=== PATIENT | female | born 1945 | race Caucasian/White ===

== ENCOUNTER 2018-01-03 00:11 | Observation (INO) | payer MEDICARE, BC ==
[2018-01-03] MEDS ORDERED: Sodium Chloride 0.9% 10 ML Syringe FLUSH PRN (00:35)
[2018-01-03] MEDS ORDERED: Iopamidol 612 MG/ML 100 ML Bottle IVPUSH ONE (00:48)
[2018-01-03 01:29] LABS: CHLORIDE,CL 108 mmol/L (98-107); SODIUM,NA 140 mmol/L (136-145)
[2018-01-03 01:30] LABS: ANION GAP 9.5 mmol/L (10-20)
--- NOTE | 2018-01-03 02:17 | EDM.PDOC ---
ED HPI GENERAL MEDICAL PROBLEM - General Chief Complaint: General Stated Complaint: arm tingling, hypertension Time Seen by Provider: 01/03/18 00:20 Source of Information: Reports: Patient History Limitations: Reports: No Limitations - History of Present Illness INITIAL COMMENTS - FREE TEXT/NARRATIVE: PtVida presents to ER with complaints of L arm paresthesia that developed at approx. 9:30 this evening. She denies any chest, back or neck discomfort. She was at rest during onset, the the discomfort has resolved since coming to the ER. She also reported complaints of parestheia to her foot, which was very short in duration and has completely resolved. She denies any shortness of breath. No weakness. No abdominal pain, nausea, vomiting, or palpitations. Onset: Today Onset Date: 01/02/18 Onset Time: 21:30 Location: Reports: Upper Extremity, Left, Lower Extremity, Left Quality: Reports: Other (numbness) Improves with: Reports: None Worsens with: Reports: None Associated Symptoms: Denies: Diaphoresis, Nausea/Vomiting, Shortness of Breath - Related Data Allergies Allergy/AdvReac Type Severity Reaction Status Date / Time No Known Allergies Allergy Verified 01/03/18 00:19 Home Meds: Home Meds Aspirin 325 mg PO DAILY 01/27/14 [History] atorvaSTATin [Lipitor] 20 mg PO BEDTIME 01/27/14 [History] hydroCHLOROthiazide [Hydrochlorothiazide] 25 mg PO DAILY 01/03/18 [History] Past Medical History HEENT History: Reports: Cataract Cardiovascular History: Reports: High Cholesterol, Hypertension Neurological History: Reports: None - Past Surgical History HEENT Surgical History: Reports: Cataract Surgery GI Surgical History: Reports: Appendectomy, Colonoscopy Female Surgical History: Reports: Tubal Ligation Social & Family History - Tobacco Use Smoking Status *Q: Never Smoker - Recreational Drug Use Recreational Drug Use: No - Living Situation & Occupation Living situation: Reports: ED ROS GENERAL - Review of Systems Review Of Systems: See Below Constitutional: Reports: No Symptoms HEENT: Reports: No Symptoms Respiratory: Reports: No Symptoms Cardiovascular: Reports: Other (See HPI) Endocrine: Reports: No Symptoms GI/Abdominal: Reports: No Symptoms : Reports: No Symptoms Musculoskeletal: Reports: Other (See HPI) Neurological: Reports: Paresthesia (L upper and lower extremity) Psychiatric: Reports: No Symptoms Hematologic/Lymphatic: Reports: No Symptoms Immunologic: Reports: No Symptoms ED EXAM, GENERAL - Physical Exam Exam: See Below Exam Limited By: No Limitations General Appearance: Alert, WD/WN, No Apparent Distress Eye Exam: Bilateral Eye: EOMI, Normal Fundi, Normal Inspection, PERRL Nose: Normal Inspection, Normal Mucosa, No Blood Throat/Mouth: Normal Inspection, Normal Lips, Normal Teeth, Normal Gums, Normal Oropharynx, Normal Voice, No Airway Compromise Head: Atraumatic, Normocephalic Neck: Normal Inspection, Supple, Non-Tender, Full Range of Motion Respiratory/Chest: No Respiratory Distress, Lungs Clear, Normal Breath Sounds, No Accessory Muscle Use, Chest Non-Tender Cardiovascular: Normal Peripheral Pulses, Regular Rate, Rhythm, No Edema, No Gallop, No JVD, No Murmur, No Rub Peripheral Pulses: 4+: Radial (L), Radial (R) GI/Abdominal: Normal Bowel Sounds, Soft, Non-Tender, No Organomegaly, No Distention, No Abnormal Bruit, No Mass (Female) Exam: Deferred Rectal (Female) Exam: Deferred Back Exam: Normal Inspection, Full Range of Motion, NT Extremities: Normal Inspection, Normal Range of Motion, Non-Tender, Normal Capillary Refill, No Pedal Edema Neurological: Alert, Oriented, CN II-XII Intact, Normal Cognition, Normal Gait, Normal Reflexes, No Motor/Sensory Deficits, Other (NIH scale is 0 ) Psychiatric: Normal Affect, Normal Mood Skin Exam: Warm, Dry, Intact, Normal Color, No Rash Lymphatic: No Adenopathy EKG INTERPRETATION Rhythm: NSR ST-T: Depressed (Approx. 1.5-2mm ST depression in V4.) Course - Vital Signs Last Recorded V/S: Last Vital Signs Temp 37.3 C 01/03/18 00:15 Pulse 70 01/03/18 02:14 Resp 14 01/03/18 02:14 BP 172/85 H 01/03/18 02:14 Pulse Ox 94 L 01/03/18 02:14 - Orders/Labs/Meds Orders: Active Orders 24 hr Category Date Time Status Patient Status [ADT] Routine ADT 01/03/18 02:22 Active EKG Documentation Completion [RC] STAT Care 01/03/18 00:35 Active Ang Head [CT] Stat Exams 01/03/18 00:36 Taken Ang Neck [CT] Stat Exams 01/03/18 00:36 Taken Head wo Cont [CT] Stat Exams 01/03/18 00:35 Ordered CBC W/O DIFF,HEMOGRAM [HEME] Q3D Lab 01/04/18 07:00 Ordered CBC W/O DIFF,HEMOGRAM [HEME] Q3D Lab 01/07/18 07:00 Ordered CBC W/O DIFF,HEMOGRAM [HEME] Q3D Lab 01/10/18 07:00 Ordered CBC W/O DIFF,HEMOGRAM [HEME] Q3D Lab 01/13/18 07:00 Ordered CBC W/O DIFF,HEMOGRAM [HEME] Q3D Lab 01/16/18 07:00 Ordered CBC W/O DIFF,HEMOGRAM [HEME] Q3D Lab 01/19/18 07:00 Ordered CBC W/O DIFF,HEMOGRAM [HEME] Q3D Lab 01/22/18 07:00 Ordered Sodium Chloride 0.9% [Saline Flush] Med 01/03/18 00:35 Active 10 ml FLUSH ASDIRECTED PRN Peripheral IV Insertion Adult [OM.PC] Routine Oth 01/03/18 00:36 Ordered Medication Orders Sodium Chloride (Saline Flush) 10 ml FLUSH ASDIRECTED PRN PRN Reason: Keep Vein Open Labs: Laboratory Tests 01/03/18 01/03/18 01/03/18 Range/Units 00:50 00:50 00:50 WBC 8.0 (4.0-10.0) x10^3/uL RBC 4.79 (4.00-5.50) x10^6/uL Hgb 13.2 (12.0-16.0) g/dL Hct 40.6 (33.0-47.0) % MCV 84.8 (78.0-93.0) fL MCH 27.6 (26.0-32.0) pg MCHC 32.5 (32.0-36.0) g/dL RDW Coeff of Nicholas 14.9 (10.0-15.0) % Plt Count 317 (130-400) x10^3/uL Neut % (Auto) 57.6 (50.0-80.0) % Lymph % (Auto) 31.6 (25.0-50.0) % [place] % (Auto) 9.4 (2.0-11.0) % Eos % (Auto) 1.2 (0.0-4.0) % Baso % (Auto) 0.2 (0.2-1.2) % PT 10.5 (9.6-11.4) SEC INR 1.0 L (2.0-3.5) Sodium 140 (136-145) mmol/L Potassium 3.5 (3.5-5.1) mmol/L Chloride 108 H (98-107) mmol/L Carbon Dioxide 26 (21-32) mmol/L Anion Gap 9.5 L (10-20) mmol/L BUN 23 H (7-18) mg/dL Creatinine 0.8 (0.55-1.02) mg/dL Est Cr Clr Drug Dosing 54.62 mL/min Estimated GFR (MDRD) > 60 Glucose 133 H (74-106) mg/dL Calcium 8.8 (8.5-10.1) mg/dL Corrected Calcium 9.20 (8.5-10.1) mg/dL Phosphorus 4.2 (2.6-4.7) mg/dL Magnesium 2.0 (1.8-2.4) mg/dL Total Bilirubin 0.6 (0.2-1.0) mg/dL AST 10 L (15-37) U/L ALT 18 (14-59) U/L Alkaline Phosphatase 82 (46-116) U/L Troponin I (<=0.056) ng/mL C-Reactive Protein < 0.2 (<=0.9) mg/dL Total Protein 7.1 (6.4-8.2) g/dL Albumin 3.5 (3.4-5.0) g/dL Globulin 3.6 Albumin/Globulin Ratio 0.97 TSH, Ultra Sensitive 3.047 (0.358-3.74) uIU/mL 01/03/18 Range/Units 00:50 WBC (4.0-10.0) x10^3/uL RBC (4.00-5.50) x10^6/uL Hgb (12.0-16.0) g/dL Hct (33.0-47.0) % MCV (78.0-93.0) fL MCH (26.0-32.0) pg MCHC (32.0-36.0) g/dL RDW Coeff of Nicholas (10.0-15.0) % Plt Count (130-400) x10^3/uL Neut % (Auto) (50.0-80.0) % Lymph % (Auto) (25.0-50.0) % [place] % (Auto) (2.0-11.0) % Eos % (Auto) (0.0-4.0) % Baso % (Auto) (0.2-1.2) % PT (9.6-11.4) SEC INR (2.0-3.5) Sodium (136-145) mmol/L Potassium (3.5-5.1) mmol/L Chloride (98-107) mmol/L Carbon Dioxide (21-32) mmol/L Anion Gap (10-20) mmol/L BUN (7-18) mg/dL Creatinine (0.55-1.02) mg/dL Est Cr Clr Drug Dosing mL/min Estimated GFR (MDRD) Glucose (74-106) mg/dL Calcium (8.5-10.1) mg/dL Corrected Calcium (8.5-10.1) mg/dL Phosphorus (2.6-4.7) mg/dL Magnesium (1.8-2.4) mg/dL Total Bilirubin (0.2-1.0) mg/dL AST (15-37) U/L ALT (14-59) U/L Alkaline Phosphatase (46-116) U/L Troponin I < 0.017 (<=0.056) ng/mL C-Reactive Protein (<=0.9) mg/dL Total Protein (6.4-8.2) g/dL Albumin (3.4-5.0) g/dL Globulin Albumin/Globulin Ratio TSH, Ultra Sensitive (0.358-3.74) uIU/mL Meds: Medications Generic Name Dose Route Start Last Admin Trade Name Freq PRN Reason Stop Dose Admin Sodium Chloride 10 ml 01/03/18 00:35 Saline Flush FLUSH ASDIRECTED PRN Keep Vein Open Discontinued Medications Generic Name Dose Route Start Last Admin Trade Name Freq PRN Reason Stop Dose Admin Enoxaparin Sodium 60 mg 01/03/18 02:33 Lovenox SUBCUT 01/03/18 02:34 ONETIME ONE Iopamidol 100 ml 01/03/18 00:48 01/03/18 01:17 Isovue-300 (61%) IVPUSH 01/03/18 00:49 100 ml ONETIME ONE Administration Metoprolol Tartrate 25 mg 01/03/18 02:29 Lopressor PO 01/03/18 02:30 ONETIME ONE Departure - Departure Time of Disposition: 02:37 Disposition: Refer to Observation Clinical Impression: Numbness of hand, Hypertension - Discharge Information Referrals: PCP,Unobtain [Primary Care Provider] - Forms: ED Department Discharge - Problem List Review Problem List Initiated/Reviewed/Updated: Yes - My Orders Last 24 Hours: My Active Orders 01/03/18 00:35 EKG Documentation Completion [RC] STAT Head wo Cont [CT] Stat Sodium Chloride 0.9% [Saline Flush] 10 ml FLUSH ASDIRECTED PRN 01/03/18 00:36 Ang Head [CT] Stat Ang Neck [CT] Stat Peripheral IV Insertion Adult [OM.PC] Routine 01/03/18 02:22 Patient Status [ADT] Routine 01/04/18 07:00 CBC W/O DIFF,HEMOGRAM [HEME] Q3D 01/07/18 07:00 CBC W/O DIFF,HEMOGRAM [HEME] Q3D 01/10/18 07:00 CBC W/O DIFF,HEMOGRAM [HEME] Q3D 01/13/18 07:00 CBC W/O DIFF,HEMOGRAM [HEME] Q3D 01/16/18 07:00 CBC W/O DIFF,HEMOGRAM [HEME] Q3D 01/19/18 07:00 CBC W/O DIFF,HEMOGRAM [HEME] Q3D 01/22/18 07:00 CBC W/O DIFF,HEMOGRAM [HEME] Q3D - Assessment/Plan Last 24 Hours: My Active Orders 01/03/18 00:35 EKG Documentation Completion [RC] STAT Head wo Cont [CT] Stat Sodium Chloride 0.9% [Saline Flush] 10 ml FLUSH ASDIRECTED PRN 01/03/18 00:36 Ang Head [CT] Stat Ang Neck [CT] Stat Peripheral IV Insertion Adult [OM.PC] Routine 01/03/18 02:22 Patient Status [ADT] Routine 01/04/18 07:00 CBC W/O DIFF,HEMOGRAM [HEME] Q3D 01/07/18 07:00 CBC W/O DIFF,HEMOGRAM [HEME] Q3D 01/10/18 07:00 CBC W/O DIFF,HEMOGRAM [HEME] Q3D 01/13/18 07:00 CBC W/O DIFF,HEMOGRAM [HEME] Q3D 01/16/18 07:00 CBC W/O DIFF,HEMOGRAM [HEME] Q3D 01/19/18 07:00 CBC W/O DIFF,HEMOGRAM [HEME] Q3D 01/22/18 07:00 CBC W/O DIFF,HEMOGRAM [HEME] Q3D Plan: Pt. will be admitted observation. I did contact [facility] and discussed case with them.Will repeat serial cardiac enzymes and EKG. She was started on lovenox using using NSTEMI/unstable angina dosing regimen. She was also started on Metoprolol tartrate 25mg BID as she is quite hypertensive. She is a code 1. Anticipate stress test either locally if able or at [facility] tomorrow as an outpatient.
[2018-01-03] MEDS ORDERED: Metoprolol Tartrate 25 MG Tab PO ONE (02:29)
[2018-01-03] MEDS ORDERED: Enoxaparin 60 MG/0.6 ML Syringe SUBCUT ONE (02:33)
[2018-01-03 05:54] VITALS: BP 168/79
[2018-01-03] MEDS ORDERED: Hydrochlorothiazide 25 MG Tab PO SCH (08:00)
[2018-01-03] MEDS ORDERED: Aspirin 325 MG Tab.EC PO SCH (08:00)
--- NOTE | 2018-01-03 10:36 | PCM.DCSUM1 ---
Discharge Summary - Hospital Course Free Text/Narrative:: Pt. was admitted early this AM with L upper extremity pain and EKG change as well as L foot paresthesia as well as hypertension. She has done well overnight. Denies any chest pain or shortness of breath this AM. She states that the paresthesia has continued to be resolved as well. This morning she informed me that she has been taking her prescribed antihypertensive intermittently, and did not take it yesterday. She was started on Metoprolol tartrate 25mg twice daily prior to knowledge of her intermittent HCTZ use. EKG is negative this AM. The ST depression in V4 has improved and her EKG is comparable to an outpatient EKG in 2012. Cardiology was consulted last night who advised serial cardiac enzymes and EKG and if negative, refer for outpatient stress test. - Discharge Data Discharge Date: 01/03/18 Discharge Disposition: Home, Self-Care 01 Condition: Good - Discharge Diagnosis/Problem(s) (1) Hypertension SNOMED Code(s): 23255540 ICD Code: I10 - ESSENTIAL (PRIMARY) HYPERTENSION Status: Acute Current Visit: Yes (2) Numbness of hand SNOMED Code(s): 981760947 ICD Code: R20.0 - ANESTHESIA OF SKIN Status: Acute Current Visit: Yes Problem Details: transient numnbess of hand. Resolved prior to arrival and exam. Cardiac work up negative. Neuroglogic exam normal. Denies any shortness of breath. D-dimer elevated, but in the face of normal sats and no signs of extremity swelling suggestive of blood clots, it does not appear prudent to expose the patient to radition looking for a low likelyhood of a PE. No signs concerning of blood clot in extremties at this time either. Discharging patient home with instructions for follow up. She feels better and would like to go home. - Discharge Plan Home Medications: Home Meds Aspirin 325 mg PO DAILY 01/27/14 [History] atorvaSTATin [Lipitor] 20 mg PO BEDTIME 01/27/14 [History] hydroCHLOROthiazide [Hydrochlorothiazide] 25 mg PO DAILY 01/03/18 [History] Forms: ED Department Discharge Referrals: Yamilet Lorenz MD [Ordering Only Provider] - PCP,Unobantonio [Primary Care Provider] - - Discharge Summary/Plan Comment Discharge Summary/Plan Comment: She will be discharged. She continues to be hypertensive this AM but her BP has decreased from >190/100 to the 160/90 range. She was given her HCTZ this AM. She will need close monitoring of her BP. Advised her to hold her metoprolol that was ordered yesterday and reevaluate her BP later in the day. If her BP remains in the at the current range to take the Metoprolol. Pt. will be scheduled for a Lexiscan either on Monday or early next week. She is to return if she has any discomfort, arm paresthesia, palpitations, etc. She will need close follow-up. Advised her to follow-up with Dr. Lorenz within the next week. Will fax her medical record to the clinic. She will need continued monitoring of carotid artery stenosis as well. - General Info Date of Service: 01/03/18 Functional Status: Reports: Pain Controlled - Review of Systems General: Reports: No Symptoms HEENT: Reports: No Symptoms Pulmonary: Reports: No Symptoms Cardiovascular: Reports: No Symptoms Musculoskeletal: Reports: No Symptoms Skin: Reports: No Symptoms Neurological: Reports: No Symptoms - Patient Data Vitals - Most Recent: Last Vital Signs Temp 36.9 C 01/03/18 05:53 Pulse 71 01/03/18 05:53 Resp 20 01/03/18 05:53 BP 168/79 H 01/03/18 05:53 Pulse Ox 95 01/03/18 05:53 Weight - Most Recent: 61.235 kg I&O - Last 24 hours: Intake & Output 01/02/18 01/03/18 01/03/18 22:59 06:59 14:59 Intake Total 180 Output Total 500 Balance -500 180 Lab Results - Last 24 hrs: Laboratory Results - last 24 hr 01/03/18 01/03/18 01/03/18 Range/Units 00:50 00:50 00:50 WBC 8.0 (4.0-10.0) x10^3/uL RBC 4.79 (4.00-5.50) x10^6/uL Hgb 13.2 (12.0-16.0) g/dL Hct 40.6 (33.0-47.0) % MCV 84.8 (78.0-93.0) fL MCH 27.6 (26.0-32.0) pg MCHC 32.5 (32.0-36.0) g/dL RDW Coeff of Nicholas 14.9 (10.0-15.0) % Plt Count 317 (130-400) x10^3/uL Neut % (Auto) 57.6 (50.0-80.0) % Lymph % (Auto) 31.6 (25.0-50.0) % Holt % (Auto) 9.4 (2.0-11.0) % Eos % (Auto) 1.2 (0.0-4.0) % Baso % (Auto) 0.2 (0.2-1.2) % PT 10.5 (9.6-11.4) SEC INR 1.0 L (2.0-3.5) Sodium 140 (136-145) mmol/L Potassium 3.5 (3.5-5.1) mmol/L Chloride 108 H (98-107) mmol/L Carbon Dioxide 26 (21-32) mmol/L Anion Gap 9.5 L (10-20) mmol/L BUN 23 H (7-18) mg/dL Creatinine 0.8 (0.55-1.02) mg/dL Est Cr Clr Drug Dosing 54.62 mL/min Estimated GFR (MDRD) > 60 Glucose 133 H (74-106) mg/dL Calcium 8.8 (8.5-10.1) mg/dL Corrected Calcium 9.20 (8.5-10.1) mg/dL Phosphorus 4.2 (2.6-4.7) mg/dL Magnesium 2.0 (1.8-2.4) mg/dL Total Bilirubin 0.6 (0.2-1.0) mg/dL AST 10 L (15-37) U/L ALT 18 (14-59) U/L Alkaline Phosphatase 82 (46-116) U/L Troponin I (<=0.056) ng/mL C-Reactive Protein < 0.2 (<=0.9) mg/dL Total Protein 7.1 (6.4-8.2) g/dL Albumin 3.5 (3.4-5.0) g/dL Globulin 3.6 Albumin/Globulin Ratio 0.97 TSH, Ultra Sensitive 3.047 (0.358-3.74) uIU/mL 01/03/18 01/03/18 Range/Units 00:50 06:50 WBC (4.0-10.0) x10^3/uL RBC (4.00-5.50) x10^6/uL Hgb (12.0-16.0) g/dL Hct (33.0-47.0) % MCV (78.0-93.0) fL MCH (26.0-32.0) pg MCHC (32.0-36.0) g/dL RDW Coeff of Nicholas (10.0-15.0) % Plt Count (130-400) x10^3/uL Neut % (Auto) (50.0-80.0) % Lymph % (Auto) (25.0-50.0) % Holt % (Auto) (2.0-11.0) % Eos % (Auto) (0.0-4.0) % Baso % (Auto) (0.2-1.2) % PT (9.6-11.4) SEC INR (2.0-3.5) Sodium (136-145) mmol/L Potassium (3.5-5.1) mmol/L Chloride (98-107) mmol/L Carbon Dioxide (21-32) mmol/L Anion Gap (10-20) mmol/L BUN (7-18) mg/dL Creatinine (0.55-1.02) mg/dL Est Cr Clr Drug Dosing mL/min Estimated GFR (MDRD) Glucose (74-106) mg/dL Calcium (8.5-10.1) mg/dL Corrected Calcium (8.5-10.1) mg/dL Phosphorus (2.6-4.7) mg/dL Magnesium (1.8-2.4) mg/dL Total Bilirubin (0.2-1.0) mg/dL AST (15-37) U/L ALT (14-59) U/L Alkaline Phosphatase (46-116) U/L Troponin I < 0.017 < 0.017 (<=0.056) ng/mL C-Reactive Protein (<=0.9) mg/dL Total Protein (6.4-8.2) g/dL Albumin (3.4-5.0) g/dL Globulin Albumin/Globulin Ratio TSH, Ultra Sensitive (0.358-3.74) uIU/mL Med Orders - Current: Current Medications Aspirin (Ecotrin) 325 mg PO DAILY [facility] Last Admin: 01/03/18 07:42 Dose: Not Given Atorvastatin Calcium (Lipitor) 20 mg PO BEDTIME [facility] Hydrochlorothiazide (Hydrochlorothiazide) 25 mg PO DAILY [facility] Last Admin: 01/03/18 07:41 Dose: 25 mg Sodium Chloride (Saline Flush) 10 ml FLUSH ASDIRECTED PRN PRN Reason: Keep Vein Open Discontinued Medications Enoxaparin Sodium (Lovenox) 60 mg SUBCUT ONETIME ONE Stop: 01/03/18 02:34 Last Admin: 01/03/18 02:40 Dose: 60 mg Iopamidol (Isovue-300 (61%)) 100 ml IVPUSH ONETIME ONE Stop: 01/03/18 00:49 Last Admin: 01/03/18 01:17 Dose: 100 ml Metoprolol Tartrate (Lopressor) 25 mg PO ONETIME ONE Stop: 01/03/18 02:30 Last Admin: 01/03/18 02:40 Dose: 25 mg - Exam General: Reports: Alert, Oriented Neck: Reports: Supple Lungs: Reports: Clear to Auscultation, Normal Respiratory Effort Cardiovascular: Reports: Regular Rate, Regular Rhythm GI/Abdominal Exam: Normal Bowel Sounds, Soft, Non-Tender, No Organomegaly, No Distention, No Abnormal Bruit, No Mass, Pelvis Stable Extremities: Normal Inspection, Normal Range of Motion, Non-Tender, No Pedal Edema, Normal Capillary Refill Skin: Reports: Warm, Dry, Intact Neurological: Reports: No New Focal Deficit Psy/Mental Status: Reports: Alert, Normal Affect, Normal Mood
[2018-01-03] MEDS ORDERED: atorvaSTATin 10 MG Tab PO SCH (20:00)
== END 2018-01-03 10:30 | disposition home or self-care (01) ==
LOC: VM.ED 00:11 → VM.MS 02:30
PROVIDERS: ADMIT Physician Assistant; ATTEND Physician Assistant
DX: R20.0 Anesthesia of skin (principal); I10 Essential (primary) hypertension
CPT/HCPCS: 36415; 70496; 70498; 80053; 83735; 84100; 84443; 84484; 85025; 85610; 86140; 93005; 96372; 99285; A9270; G0378; J1650; Q9967

== ENCOUNTER 2019-05-28 22:47 | Emergency (ER) | payer MEDICARE, BC ==
--- NOTE | 2019-05-28 23:06 | EDM.PDOC ---
ED HPI GENERAL MEDICAL PROBLEM - General Chief Complaint: Neuro Symptoms/Deficits Stated Complaint: PAIN DOWN ARM Time Seen by Provider: 05/28/19 22:50 Source of Information: Reports: Patient History Limitations: Reports: No Limitations - History of Present Illness INITIAL COMMENTS - FREE TEXT/NARRATIVE: Patient states tonight at approximately 9:00 when going to bed her left arm just did not feel right. She denies any pain or weakness coldness loss of sensation may be some mild numbness down the entire arm she states it is hard to express what she is feeling but does not feel right. She denies any other complaints at this time she denies any trauma to the shoulder arm or the neck or back she denies any loss of strength or [place] no trouble with speech or headache no vision issues no numbness or tingling across the face or tongue No family history of strokes positive coronary artery disease Duration: Hour(s): Improves with: Reports: None Worsens with: Reports: None Associated Symptoms: Reports: No Other Symptoms - Related Data Allergies Allergy/AdvReac Type Severity Reaction Status Date / Time No Known Allergies Allergy Verified 01/03/18 00:19 Home Meds: Home Meds Aspirin 325 mg PO DAILY 01/27/14 [History] atorvaSTATin [Lipitor] 20 mg PO BEDTIME 01/27/14 [History] hydroCHLOROthiazide [Hydrochlorothiazide] 25 mg PO DAILY 01/03/18 [History] Past Medical History HEENT History: Reports: Cataract Cardiovascular History: Reports: High Cholesterol, Hypertension Neurological History: Reports: None - Infectious Disease History Infectious Disease History: Reports: None - Past Surgical History HEENT Surgical History: Reports: Cataract Surgery GI Surgical History: Reports: Appendectomy, Colonoscopy Female Surgical History: Reports: Tubal Ligation Social & Family History - Caffeine Use Caffeine Use: Reports: Coffee - Living Situation & Occupation Living situation: Reports: ED ROS GENERAL - Review of Systems Review Of Systems: See Below Constitutional: Reports: No Symptoms. Denies: Fever, Chills, Malaise, Weakness , Fatigue HEENT: Reports: No Symptoms. Denies: Dental Pain, Eye Discharge, Eye Pain, Hearing Loss, Vertigo, Vision Change Respiratory: Reports: No Symptoms Cardiovascular: Reports: No Symptoms, Other (Patient states at home her blood pressure was) Endocrine: Reports: No Symptoms GI/Abdominal: Reports: No Symptoms : Reports: No Symptoms Musculoskeletal: Reports: No Symptoms Skin: Reports: No Symptoms Neurological: Reports: Other (states left arm does not feel normal). Denies: Confusion, Dizziness, Headache, Numbness, Paresthesia, Syncope, Tingling, Trouble Speaking, Weakness, Change in Speech Psychiatric: Reports: No Symptoms Hematologic/Lymphatic: Reports: No Symptoms Immunologic: Reports: No Symptoms ED EXAM, NEURO - Physical Exam Exam: See Below Exam Limited By: No Limitations General Appearance: Alert, WD/WN, No Apparent Distress Eye Exam: Bilateral Eye: EOMI, Normal Inspection Ears: Normal External Exam, Normal Canal, Hearing Grossly Normal, Normal TMs Throat/Mouth: Normal Inspection, Normal Lips, Normal Teeth, Normal Oropharynx, Normal Voice, No Airway Compromise Head Exam: Atraumatic, Normocephalic Neck: Normal Inspection, Supple, Non-Tender, Full Range of Motion Respiratory/Chest: No Respiratory Distress, Lungs Clear, Normal Breath Sounds, No Accessory Muscle Use, Chest Non-Tender Cardiovascular: Normal Peripheral Pulses, Regular Rate, Rhythm, No Edema, No Gallop, No JVD, No Murmur, No Rub GI/Abdominal: Normal Bowel Sounds, Soft, Non-Tender, No Distention Neurological: Alert, Normal Mood/Affect, Normal Dorsiflexion, CN II-XII Intact, Normal Plantar Flexion, Normal Gait, Normal Reflexes, No Motor/Sensory Deficits , Oriented x 3, Other (Patient is alert and oriented with normal speech conversation logical thought cranial nerves II through XII are intact she has equal facial sensation bilateral equal [place] 5 of 5 upper extremity lower extremity 2+ DTRs bilateral normal neurologic exam) Back Exam: Normal Inspection, Full Range of Motion Extremities: Normal Inspection, Normal Range of Motion, Non-Tender, Normal Capillary Refill Psychiatric: Normal Affect, Normal Mood Skin Exam: Warm, Dry, Intact, Normal Color, No Rash Course - Vital Signs Text/Narrative:: Due to the abnormal symptoms of the patient she will be worked up as a stroke CBC BMP coags EKG CT head Beena from [facility] called [place] [address] no acute findings Patient had prior CTA head and neck last year January 03 2018 which was normal. Potassium of 2.9 All other lab work within normal limits Spoke with Dr. Mckenna neurology at [facility] discussed the patient's symptoms signs CT report states it does not seem like it is neuro related he recommended getting a CTA head and neck tonight if it is normal she can be followed up as an outpatient he also recommended treatment potassium and magnesium and check and a 3-hour troponin Patient is okay with further work-up I discussed with her observation she states she does not wish that at this time she wants to go home after the other test is done she states she will follow-up outpatient with her PCP gives verbal understanding on signs and symptoms and need to return to the emergency room - Orders/Labs/Meds Orders: Active Orders 24 hr Category Date Time Status Ang Head [CT] Stat Exams 05/28/19 23:59 Ordered Ang Neck [CT] Stat Exams 05/29/19 00:01 Ordered Head wo Cont [CT] Stat Exams 05/28/19 23:00 Ordered TROPONIN I [CHEM] Stat Lab 05/29/19 03:45 Ordered Labs: Laboratory Tests 05/28/19 05/28/19 05/28/19 Range/Units 23:12 23:12 23:12 WBC 7.3 (4.0-10.0) x10^3/uL RBC 4.80 (4.00-5.50) x10^6/uL Hgb 13.2 (12.0-16.0) g/dL Hct 39.3 (33.0-47.0) % MCV 81.9 (78.0-93.0) fL MCH 27.5 (26.0-32.0) pg MCHC 33.6 (32.0-36.0) g/dL RDW Coeff of Nicholas 14.5 (10.0-15.0) % Plt Count 320 (130-400) x10^3/uL Neut % (Auto) 49.4 L (50.0-80.0) % Lymph % (Auto) 36.5 (25.0-50.0) % [place] % (Auto) 11.7 H (2.0-11.0) % Eos % (Auto) 1.8 (0.0-4.0) % Baso % (Auto) 0.6 (0.2-1.2) % PT 10.4 (10.0-12.8) SEC INR 0.9 L (2.0-3.5) Sodium 140 (136-145) mmol/L Potassium 2.9 L* (3.5-5.1) mmol/L Chloride 101 (98-107) mmol/L Carbon Dioxide 28 (21-32) mmol/L Anion Gap 13.9 (10-20) mmol/L BUN 17 (7-18) mg/dL Creatinine 0.8 (0.55-1.02) mg/dL Est Cr Clr Drug Dosing TNP Estimated GFR (MDRD) > 60 Glucose 117 H (74-106) mg/dL Calcium 8.6 (8.5-10.1) mg/dL Troponin I < 0.017 (<=0.056) ng/mL Meds: Medications Discontinued Medications Generic Name Dose Route Start Last Admin Trade Name Freq PRN Reason Stop Dose Admin Iopamidol 100 ml 05/29/19 00:12 Isovue-300 (61%) IVPUSH 05/29/19 00:13 ONETIME ONE Magnesium Oxide 400 mg 05/29/19 00:06 Magnesium Oxide PO 05/29/19 00:07 ONETIME ONE Potassium Chloride 40 meq 05/29/19 00:05 Potassium Chloride Solution PO 05/29/19 00:06 ONETIME ONE Departure - Departure Time of Disposition: 04:00 Disposition: Home, Self-Care 01 Condition: Good Clinical Impression: Neurological symptoms, Hypokalemia - Discharge Information Referrals: PCP,None [Primary Care Provider] - Forms: ED Department Discharge Sepsis Event Note - Focused Exam Date Exam was Performed: 05/29/19 Time Exam was Performed: 00:14 - Problem List & Annotations (1) Neurological symptoms SNOMED Code(s): 577954493 Code(s): R29.90 - UNSPECIFIED SYMPTOMS AND SIGNS INVOLVING THE NERVOUS SYSTEM Status: Acute Current Visit: Yes (2) Hypokalemia SNOMED Code(s): 55933373 Code(s): E87.6 - HYPOKALEMIA Status: Acute Current Visit: Yes - My Orders Last 24 Hours: My Active Orders 05/28/19 23:00 Head wo Cont [CT] Stat 05/28/19 23:59 Ang Head [CT] Stat 05/29/19 00:01 Ang Neck [CT] Stat 05/29/19 03:45 TROPONIN I [CHEM] Stat - Assessment/Plan Last 24 Hours: My Active Orders 05/28/19 23:00 Head wo Cont [CT] Stat 05/28/19 23:59 Ang Head [CT] Stat 05/29/19 00:01 Ang Neck [CT] Stat 05/29/19 03:45 TROPONIN I [CHEM] Stat
[2019-05-28 23:40] LABS: CHLORIDE,CL 101 mmol/L (98-107); SODIUM,NA 140 mmol/L (136-145)
[2019-05-28 23:43] LABS: ANION GAP 13.9 mmol/L (10-20)
[2019-05-29] MEDS ORDERED: Potassium Chloride 10% 20 MEQ/15 ML Soln 15 ML UD Cup PO ONE (00:05)
[2019-05-29] MEDS ORDERED: Magnesium Oxide 400 MG Tab PO ONE (00:06)
[2019-05-29] MEDS ORDERED: Iopamidol 612 MG/ML 100 ML Bottle IVPUSH ONE (00:12)
[2019-05-29 06:35] VITALS: BP 138/72; PULSE 72
--- NOTE | 2019-05-29 08:27 | CT ---
[id number] CT/CT Head WO IV EXAM: CT Head WO IV CLINICAL DATA: LEFT ARM NUMBNESS COMPARISON STUDY: None FINDINGS: No intracranial hemorrhage, extra-axial fluid collection, mass, or acute ischemia. Generalized parenchymal atrophy with scattered areas of nonspecific white matter disease, commonly seen as sequela of chronic microvascular ischemia. There is a 2.2 cm calcified scalp mass along the left parietal vertex. Paranasal sinuses and mastoid air cells are clear. IMPRESSION: No acute intracranial findings. Bert Wright DO 05/29/19 0826 Thank you for allowing us to participate in the care of your patient.
--- NOTE | 2019-05-29 08:47 | CT ---
[id number] CT/CTA Head Neck EXAM: CTA HEAD NECK. INDICATION: LEFT ARM NUMBNESS, RULE OUT CVA. COMPARISON: None. DISCUSSION: There is a normal three-vessel branch configuration of a left aortic arch. The origin of the great vessels are widely patent. There are a few scattered calcified atherosclerotic plaques within the carotid system bilaterally without hemodynamically significant stenosis or occlusion. There is codominance of the vertebral arteries. The vertebral arteries are widely patent. The intracranial portion of the internal carotid arteries and vertebral basilar system is unremarkable. No hemodynamically significant stenosis or occlusion. The [place] is intact. The anterior, middle and posterior cerebral arteries are symmetric without hemodynamically significant stenosis or occlusion. No aneurysm or dissection. IMPRESSION: 1. No large vessel occlusion or significant stenosis. Bert Wright DO 05/29/19 0845 Thank you for allowing us to participate in the care of your patient.
== END 2019-05-29 04:32 | disposition home or self-care (01) ==
LOC: VM.ED 22:47
DX: E87.6 Hypokalemia (principal); R29.90 Unspecified symptoms and signs involving the nervous system; E78.00 Pure hypercholesterolemia, unspecified; I10 Essential (primary) hypertension; Z79.899 Other long term (current) drug therapy; Z90.49 Acquired absence of other specified parts of digestive tract; Z79.82 Long term (current) use of aspirin; R20.0 Anesthesia of skin
CPT/HCPCS: 36415; 70450; 70496; 70498; 80048; 84484; 85025; 85610; 99284; A9270; Q9967

== ENCOUNTER 2024-09-01 15:48 | Emergency (ER) | payer MEDICARE, BC ==
[2024-09-01 18:08] VITALS: BP 171/96; PULSE 93
== END 2024-09-01 17:00 | disposition home or self-care (01) ==
LOC: VM.ED 15:48
DX: S46.911A Strain of unspecified muscle, fascia and tendon at shoulder and upper arm level, right arm, initial encounter (principal); I10 Essential (primary) hypertension; E78.00 Pure hypercholesterolemia, unspecified; Z79.82 Long term (current) use of aspirin; Z79.899 Other long term (current) drug therapy; X50.1XXA Overexertion from prolonged static or awkward postures, initial encounter; Y93.89 Activity, other specified
CPT/HCPCS: 99283

== ENCOUNTER 2025-01-31 19:26 | Emergency (ER) | payer MEDICARE, BC ==
[2025-01-31 20:08] VITALS: BP 181/84; PULSE 89
== END 2025-01-31 20:15 | disposition home or self-care (01) ==
LOC: VM.ED 19:26
DX: I10 Essential (primary) hypertension (principal); E78.00 Pure hypercholesterolemia, unspecified; Z79.899 Other long term (current) drug therapy; Z90.49 Acquired absence of other specified parts of digestive tract
CPT/HCPCS: 99283